=== PATIENT | male | born 1945 ===

== ENCOUNTER 2024-06-03 06:28 | Day surgery (SDC) | payer OTHER, BC ==
[2024-05-31 16:42] VITALS: BMI 28.5
[2024-06-03 09:32] VITALS: RESP 16
[2024-06-03 09:54] VITALS: BP 106/64; PULSE 73; TEMP 97.6
== END 2024-06-03 10:13 | disposition home or self-care (01) ==
LOC: JASU-ENDO 06:28
PROVIDERS: ATTEND Internal Medicine Gastroenterology
PROC: 0DBK8ZX Excision of Ascending Colon, Via Natural or Artificial Opening Endoscopic, Diagnostic (ICD-10-PCS; principal; 2024-06-03 08:30)
DX: Z12.11 Encounter for screening for malignant neoplasm of colon (principal); D12.2 Benign neoplasm of ascending colon; K57.30 Diverticulosis of large intestine without perforation or abscess without bleeding; Z86.0100 Personal history of colon polyps, unspecified; I10 Essential (primary) hypertension
CPT/HCPCS: 88305-TC